=== PATIENT | female | born 1995 | race Caucasian/White ===

== ENCOUNTER 2018-04-13 09:39 | Emergency (ER) | payer BC, MEDICAID ==
[~2018-04-13] VITALS: Ht 167.6 cm; Wt 114.5 kg
[~2018-04-13 09:39] MED LIST: AMPH30TA3 PO
[2018-04-13 13:30] VITALS: BP 128/77
== END 2018-04-13 13:40 | disposition home or self-care (01) ==
LOC: EMS 09:41
DX: O21.9 Vomiting of pregnancy, unspecified (principal); O26.891 Other specified pregnancy related conditions, first trimester; R10.30 Lower abdominal pain, unspecified; Z3A.01 Less than 8 weeks gestation of pregnancy
CPT/HCPCS: 76801; 76817

== ENCOUNTER 2020-11-24 11:42 | Emergency (ER) | payer BC, MEDICAID, OTHER ==
[~2020-11-24] VITALS: Ht 167.6 cm; Wt 114.5 kg
[2020-11-24] MEDS ORDERED: PREN1.4T2 PO (11:45)
[2020-11-24] MEDS ORDERED: PHENYLEPHRINE/SHK LV/MIN OIL/PET 57 GM OINTMENT TP ONE (12:30)
[2020-11-24 13:16] VITALS: BP 137/81
== END 2020-11-24 13:28 | disposition home or self-care (01) ==
LOC: EMS 11:44
DX: K62.5 Hemorrhage of anus and rectum (principal)
CPT/HCPCS: 99282; Z7502; Z7610

== ENCOUNTER 2022-10-27 17:46 | Emergency (ER) | payer BC, OTHER ==
[~2022-10-27] VITALS: Ht 167.6 cm; Wt 119.1 kg
[~2022-10-27 17:46] MED LIST changes: +PREN1.4T2 PO
[2022-10-27 17:53] VITALS: BP 131/90; PULSE 75; RESP 16; TEMP 98.3
[2022-10-27] MEDS ORDERED: LIDOCAINE/PF 1% 2 ML VIAL IM ONE (20:15)
[2022-10-27] MEDS ORDERED: CefTRIAXone SODIUM 1 GM/VIAL IM ONE (20:15)
[2022-10-27] MEDS ORDERED: AZITHROMYCIN 500 MG TABLET PO ONE (20:15)
[2022-10-27] MEDS ORDERED: DOXY-354 PO (20:48)
[2022-10-27] MEDS ORDERED: MICO15CR9 VG (20:48)
[2022-10-27 20:59] LABS: APPEARANCE,URINE CLEAR (CLEAR); BILIRUBIN,URINE NEGATIVE (NEGATIVE); GLUCOSE, URINE (UA) NEGATIVE (NEGATIVE); KETONES,URINE TRACE mg/dL (NEGATIVE); LEUKOCYTE ESTERASE ,URINE NEGATIVE (NEGATIVE); NITRATE,URINE NEGATIVE (NEGATIVE); OCCULT BLOOD,URINE NEGATIVE (NEGATIVE); PH,URINE 6.5 (5.0-8.0); PROTEIN,URINE 30-70 mg/dL (NEGATIVE); SPECIFIC GRAVITIY, URINE 1.033 (1.003-1.030)
== END 2022-10-27 21:10 | disposition home or self-care (01) ==
LOC: EMS 17:47
DX: N76.0 Acute vaginitis (principal)
CPT/HCPCS: 99284; 81003; 84703; 87491; 87591; 96372; J0696; J3490; Q9967